=== PATIENT | male | born 1950 | race Caucasian/White ===

== ENCOUNTER → 2018-06-10 | Outpatient (CLI) | payer MEDICARE, OTHER ==
[~2018-06-10] MED LIST: ALBUTEROL SULFATE 2.5 MG/3 ML VIAL NEB ONE
== END ==
LOC: RESP 11:17
PROVIDERS: ATTEND General Practice
DX: R06.02 Shortness of breath (principal); Z87.891 Personal history of nicotine dependence
CPT/HCPCS: 94060; J7611

== ENCOUNTER 2019-09-25 14:07 | Emergency (ER) | payer MEDICARE, OTHER ==
--- NOTE | 2019-09-25 14:29 | ED.PDOC ---
History of Present Illness - General Chief Complaint: Lower Extremity Injury Stated Complaint: left knee pain Time Seen by Provider: 09/25/19 14:28 Source: patient - History of Present Illness Initial Comments: 69 yo obese male who presents with cc of Left knee pain following injury last night at home at 7 pm. States he rolled the right ankle and began to fall and twisted the left knee awkwardly with acute sharp lateral L knee pain prior to falling and then had blunt injury to the anterior left knee as it hit the carpet. Reports constant 7/10 sharp pains to the lateral aspect of the knee, no radiation, worse with standing/walking, also feels unstable, mild L knee swelling, took Tylenol #3 this morning with marked improvement in pain but still unable to walk on it. No hx of prior injuries to the knee, no weakness/numbness reported, no deformities. Allergies/Adverse Reactions: Allergies Codeine Adverse Reaction (Verified 09/25/19 14:28) hallucinations Home Medications: Ambulatory Orders Acetaminophen W/ Codeine [Tylenol W/ CODEINE #3] 1 ea PO Q6H PRN 14 Days #15 09/25/19 Review of Systems - Review of Systems Review of Systems: 09/25/19 15:18 as per HPI All other Systems: Reviewed and Negative Past Medical History (General) - Patient Medical History Hx Stroke: No Hx Congestive Heart Failure: No Hx Diabetes: No Hx Cancer: Yes - Skin Surgical History: appendectomy, tonsillectomy - Vaccination History Hx Influenza Vaccination: No Hx Pneumococcal Vaccination: No - Social History Hx Tobacco Use: Yes Family Medical History - Family History Father Family History: Unknown Living Status: Unknown Physical Exam - Physical Exam General Appearance: Alert, No apparent distress Eyes, Ears, Nose, Throat: PERRL/EOMI, normal ENT inspection Neck: non-tender, full range of motion, supple, normal inspection Cardiovascular/Respiratory: regular rate, rhythm, no M/R/G, normal peripheral pulses, no JVD, normal breath sounds, no respiratory distress Gastrointestinal/Abdominal: non-tender, no organomegaly Back: normal inspection, no CVA tenderness, no vertebral tenderness Thigh/Hip: normal inspection, non-tender, no evidence of injury, normal ROM Leg: normal inspection, non-tender, no evidence of injury, normal ROM Knee: other - Left knee with minor anterior abrasions, mild joint swelling, no deformities, mild lateral joint line ttp, mild medial joint line ttp, no laxity noted on ligagment testing, full ROM noted Ankle: normal inspection, non-tender, no evidence of injury, normal ROM Foot: normal inspection, non-tender Neuro/Tendon: normal sensation, normal motor functions, normal tendon functions Mental Status: alert, oriented x 3 Skin: normal color, warm/dry Progress - Progress Progress: 09/25/19 14:20 Acute left knee pain -suspect sprain/strain most likely vs LCL injury/strain vs meniscal tear/injury vs frx vs other -obtain XR L knee 09/25/19 15:21 -XR L knee shows no acute frx's per my read, small joint effusion present. Moderate joint space narrowing and osteoarthritis present. -Discussed findings and diagnosis of Left knee sprain. Advised RICE, OTC analgesics, continued Tylenol #3 for breakthrough pain, gradual return to WB/walking as tolerated, close f/u with PCP Sven Jesus MD Billing #[id number] Departure - Departure Clinical Impression: Knee LCL sprain Qualifiers: Encounter type: initial encounter Laterality: left Qualified Code(s): S83.422A - Sprain of lateral collateral ligament of left knee, initial encounter Time of Disposition: 15:23 Disposition: Discharge to Home or Self Care Condition: Good Departure Forms: ED Discharge - Pt. Copy, Patient Portal Self Enrollment Instructions: Knee Sprain (DC) Activity: increase activity as tolerated Referrals: NENO HILL [Primary Care Provider] - 1-2 Weeks Prescriptions: Acetaminophen W/ Codeine [Tylenol W/ CODEINE #3] 1 ea PO Q6H PRN 14 Days #15 PRN Reason: Pain Home Medications: Ambulatory Orders Acetaminophen W/ Codeine [Tylenol W/ CODEINE #3] 1 ea PO Q6H PRN 14 Days #15 09/25/19
[2019-09-25 14:34] VITALS: O2SAT 97
--- NOTE | 2019-09-25 14:58 | RAD ---
EXAM: XR Left Knee, 3 Views CLINICAL HISTORY: fall, left knee pain TECHNIQUE: Three views of the left knee. COMPARISON: No relevant prior studies available. FINDINGS: Bones/joints: Small joint effusion present. Mild patellofemoral spurring noted. No acute fracture. No dislocation. Soft tissues: Unremarkable. Vasculature: Mild atherosclerotic calcifications in the thigh noted. IMPRESSION: Small joint effusion present. Otherwise, no acute changes. Electronically signed by: Nohemi Chaney MD 09/25/2019 2:56 PM [employer]
[2019-09-25 15:44] VITALS: BP 146/81; TEMP 97.9
== END 2019-09-25 15:30 | disposition home or self-care (01) ==
LOC: ER 14:07
DX: S83.422A Sprain of lateral collateral ligament of left knee, initial encounter (principal); E66.9 Obesity, unspecified; W18.30XA Fall on same level, unspecified, initial encounter; Y92.009 Unspecified place in unspecified non-institutional (private) residence as the place of occurrence of the external cause; Z88.5 Allergy status to narcotic agent; Z68.36 Body mass index [BMI] 36.0-36.9, adult